=== PATIENT | male | born 1950 | race Caucasian/White ===

== ENCOUNTER 2017-01-30 03:31 | Emergency (ER) | payer BC, MEDICARE ==
[~2017-01-30] VITALS: Ht 170.2 cm; Wt 95.9 kg
[~2017-01-30 03:31] MED LIST: AMLO10TA2 PO; ATOR10TA9 PO; LISI1TAB5 PO; METF10002 PO
[2017-01-30] MEDS ORDERED: KETOROLAC 30 MG/1 ML IM ONE (04:00)
[2017-01-30] MEDS ORDERED: OXYcodone/APAP 5/325MG TABLET PO ONE (04:00)
[2017-01-30] MEDS ORDERED: OXYcodone/APAP 5/325MG TABLET ONE (04:08)
[2017-01-30] MEDS ORDERED: KETOROLAC 30 MG/1 ML ONE (04:08)
[2017-01-30 04:57] VITALS: BP 182/82
== END 2017-01-30 05:48 | disposition home or self-care (01) ==
LOC: ED 05:42
DX: M25.551 Pain in right hip (principal); M79.651 Pain in right thigh; I10 Essential (primary) hypertension; E11.9 Type 2 diabetes mellitus without complications
CPT/HCPCS: 73502; 96372; 99284; J1885